=== PATIENT | female | born 1980 | race Two or more races ===

== ENCOUNTER 2020-02-09 18:17 | Observation (INO) | payer MEDICAID, SELFPAY ==
[~2020-02-09] VITALS: Ht 152.4 cm; Wt 78.0 kg
[2020-02-09 18:27] VITALS: BP 111/65
--- NOTE | 2020-02-09 18:31 | NUR ---
PT TAKEN TO BED 7.
--- NOTE | 2020-02-09 18:35 | NUR ---
A 30-WEEK OF 39/F referred from urgent care for RUQ ABDOMINAL pain since yesterday. Had ultrasound completed and told to come to ED. Pt unable to states U/S results. HOWEVER, PT REPORTS THE DR TOLD HER THE PAIN IS DUE TO HER APPENDIX. PT STATES THE PAIN IS NON-RADIATING W/O N/V/D, CONSTIPATION, FEVER, CHILLS.AAOX4 WITH EVEN AND STEADY GAIT; LUNGS CLEAR BL; HR EVEN AND REGULAR; PT DENIES ANY FEVER, CP, SOB, OR COUGH AT THIS TIME; PATIENT STATES PAIN OF 8/10 AT THIS TIME; TENDERNESS ON PALPATION ON RUQ ABDOMINAL AREA WITH GUARDING W/O REBOUND TENDERNESS NOTICED. VSS; PATIENT POSITIONED FOR COMFORT; HOB ELEVATED; BEDRAILS UP X1; BED DOWN. ER MADE AWARE OF PT STATUS. A0. IMELDA 02/11/2020. LMP 06/05/2019. NO CONSTRACTIONS, NO VAGINAL BLEEDING, -WATER BROKEN, + MOVEMENT. Addendum: 02/09/20 at 1914 by MED Gabriel's sign is negative.
--- NOTE | 2020-02-09 18:49 | NUR ---
Ultrasound at bedside.
--- NOTE | 2020-02-09 19:13 | NUR ---
Cristina crane in [facility] - 02/09/20 at 1914 by MARILYN carla's sign is negative.
--- NOTE | 2020-02-09 19:13 | NUR ---
REPORT RECEIVED FROM ALONDRA HERMAN FOR CONTINUITY OF CARE.
--- NOTE | 2020-02-09 19:13 | NUR ---
Pt report given to ALONDRA Conway. Transfer of care at this time.
[2020-02-09 19:14] LABS: BASOPHILS % (AUTO) 0.2 % (0.0-2.0); EOSINOPHILS # (AUTO) 0.1 K/uL (0-0.4); EOSINOPHILS % (AUTO) 0.9 % (0.0-4.0); HEMOGLOBIN 11.3 g/dL (12.0-16.0); LYMPHOCYTES # (AUTO) 1.7 K/uL (2.5-16.5); LYMPHOCYTES % (AUTO) 18.4 % (20.5-51.1); MEAN CORPUSCULAR HEMOGLOBIN 28 pg (27-31); MEAN CORPUSCULAR HGB CONC 33 g/dL (33-37); MEAN CORPUSCULAR VOLUME 83.9 fL (80-94); MONOCYTES # (AUTO) 0.8 K/uL (0.8-1.0); MONOCYTES % (AUTO) 8.5 % (1.7-9.3); NEUTROPHILS # (AUTO) 6.7 K/uL (1.8-7.7); PLATELET COUNT (AUTO) 196 K/uL (140-450); RED BLOOD CELL COUNT(AUTO) 4.05 MIL/uL (4.20-5.40); RED CELL DISTRIBUTION WIDTH 14.5 % (11.6-13.7); WHITE BLOOD COUNT (AUTO) 9.3 K/uL (4.8-10.8)
[2020-02-09 19:26] LABS: APPEARANCE,URINE CLEAR (CLEAR); BILIRUBIN,URINE NEGATIVE (NEGATIVE); BLOOD, URINE NEGATIVE (NEGATIVE); COLOR,URINE YELLOW (YELLOW); LEUKOCYTE ESTERASE ,URINE NEGATIVE (NEGATIVE); NITRITE, URINE NEGATIVE (NEGATIVE); UGLUCOSE NEGATIVE (NEGATIVE)
--- NOTE | 2020-02-09 19:30 | NUR ---
PT RESTING IN BED , LOCKED AND IN LOWEST POSITION ,HOB ELEVATED, SIDE RAIL X2 FOR PT SAFETY. VSS , NO ACUTE DISTRESS NOTED AT THIS TIME.
[2020-02-09 19:35] LABS: ALBUMIN 2.8 g/dL (3.4-5.0); ANION GAP 17.8 (8-16); CARBON DIOXIDE 20.1 mmol/L (21-32); CREATININE 0.5 mg/dL (0.6-1.3); POTASSIUM 3.9 mmol/L (3.5-5.1); TOTAL BILIRUBIN 0.3 mg/dL (0.0-1.0)
--- NOTE | 2020-02-09 20:10 | NUR ---
PT DISCHARGED FROM ED WITH RX OF TYLENOL AND AFTERCARE INSTRUCTIONS. PT VERBALIZED DISCHARGE INSTRUCTIONS. PT TAKEN TO OB VIA W/C FOR OB EVAULATION.
[2020-02-09] MEDS ORDERED: LACTATED RINGERS 1,000 ML IV SCH (20:40)
[2020-02-09 21:11] VITALS: BP 108/70
[2020-02-10 06:25] LABS: BASOPHILS % (AUTO) 0.1 % (0.0-2.0); EOSINOPHILS # (AUTO) 0.1 K/uL (0-0.4); EOSINOPHILS % (AUTO) 1.1 % (0.0-4.0); HEMATOCRIT 31.1 % (36-48); HEMOGLOBIN 10.6 g/dL (12.0-16.0); LYMPHOCYTES # (AUTO) 1.7 K/uL (2.5-16.5); MEAN CORPUSCULAR HEMOGLOBIN 29 pg (27-31); MEAN CORPUSCULAR HGB CONC 34 g/dL (33-37); MEAN CORPUSCULAR VOLUME 83.4 fL (80-94); MONOCYTES # (AUTO) 0.7 K/uL (0.8-1.0); MONOCYTES % (AUTO) 7.1 % (1.7-9.3); NEUTROPHILS # (AUTO) 7.1 K/uL (1.8-7.7); NEUTROPHILS % (AUTO) 73.7 % (42.2-75.2); PLATELET COUNT (AUTO) 164 K/uL (140-450); RED BLOOD CELL COUNT(AUTO) 3.73 MIL/uL (4.20-5.40); RED CELL DISTRIBUTION WIDTH 14.9 % (11.6-13.7); WHITE BLOOD COUNT (AUTO) 9.7 K/uL (4.8-10.8)
--- NOTE | 2020-02-10 07:16 | NUR ---
PATIENT HAS BEEN SCREENED AND CATEGORIZED LOW NUTRITION RISK. PATIENT WILL BE SEEN WITHIN 7 DAYS OF ADMISSION. 02/16/[address]
== END 2020-02-10 14:00 | disposition home or self-care (01) ==
LOC: MED 18:17 → MLD 20:10
PROVIDERS: ADMIT Obstetrics & Gynecology; ATTEND Obstetrics & Gynecology
DX: O26.893 Other specified pregnancy related conditions, third trimester (principal); Z20.828 Contact with and (suspected) exposure to other viral communicable diseases; R10.11 Right upper quadrant pain; O09.523 Supervision of elderly multigravida, third trimester; Z3A.30 30 weeks gestation of pregnancy
CPT/HCPCS: 36415; 76705; 76805; 80053; 81003; 82150; 83690; 85025; 96360; 96361; 99285; G0378; J7120; Q0092; U0003

== ENCOUNTER 2020-04-02 11:11 | Observation (INO) | payer MEDICAID, SELFPAY ==
[~2020-04-02] VITALS: Ht 149.9 cm; Wt 78.0 kg
[2020-04-02 12:01] VITALS: BP 117/59
--- NOTE | 2020-04-02 15:03 | NUR ---
PATIENT HAS BEEN SCREENED AND CATEGORIZED LOW NUTRITION RISK. PATIENT WILL BE SEEN WITHIN 7 DAYS OF ADMISSION. 04/08/[address]
== END 2020-04-02 14:30 | disposition home or self-care (01) ==
LOC: MLD 11:11
PROVIDERS: ADMIT Obstetrics & Gynecology; ATTEND Obstetrics & Gynecology
DX: O62.9 Abnormality of forces of labor, unspecified (principal); Z20.828 Contact with and (suspected) exposure to other viral communicable diseases; O34.219 Maternal care for unspecified type scar from previous cesarean delivery; O09.523 Supervision of elderly multigravida, third trimester; Z3A.38 38 weeks gestation of pregnancy
CPT/HCPCS: 59025; 76805; 81000; 87426; G0378; Q0092

== ENCOUNTER 2020-04-05 08:08 | Inpatient (IN) | payer MEDICAID, SELFPAY ==
[~2020-04-05] VITALS: Ht 152.4 cm; Wt 77.6 kg
[2020-04-05] MEDS ORDERED: LACTATED RINGERS 1,000 ML IV SCH (08:20)
[2020-04-05 09:08] LABS: BASOPHILS % (AUTO) 0.2 % (0.0-2.0); EOSINOPHILS # (AUTO) 0.1 K/uL (0-0.4); EOSINOPHILS % (AUTO) 0.7 % (0.0-4.0); HEMATOCRIT 33.8 % (36-48); HEMOGLOBIN 11.1 g/dL (12.0-16.0); LYMPHOCYTES # (AUTO) 1.6 K/uL (2.5-16.5); LYMPHOCYTES % (AUTO) 20.3 % (20.5-51.1); MEAN CORPUSCULAR HEMOGLOBIN 25 pg (27-31); MEAN CORPUSCULAR HGB CONC 33 g/dL (33-37); MEAN CORPUSCULAR VOLUME 77.3 fL (80-94); MONOCYTES # (AUTO) 0.5 K/uL (0.8-1.0); NEUTROPHILS # (AUTO) 5.6 K/uL (1.8-7.7); NEUTROPHILS % (AUTO) 71.8 % (42.2-75.2); PLATELET COUNT (AUTO) 174 K/uL (140-450); RED BLOOD CELL COUNT(AUTO) 4.37 MIL/uL (4.20-5.40); RED CELL DISTRIBUTION WIDTH 16.2 % (11.6-13.7); WHITE BLOOD COUNT (AUTO) 7.7 K/uL (4.8-10.8)
[2020-04-05 09:15] LABS: APPEARANCE,URINE CLEAR (CLEAR); BILIRUBIN,URINE NEGATIVE (NEGATIVE); BLOOD, URINE NEGATIVE (NEGATIVE); COLOR,URINE YELLOW (YELLOW); LEUKOCYTE ESTERASE ,URINE TRACE (NEGATIVE); NITRITE, URINE NEGATIVE (NEGATIVE); UGLUCOSE NEGATIVE (NEGATIVE)
[2020-04-05 09:16] VITALS: BP 98/61
[2020-04-05 09:23] LABS: ALBUMIN 2.7 g/dL (3.4-5.0); ANION GAP 15.2 (8-16); CARBON DIOXIDE 19.7 mmol/L (21-32); CREATININE 0.7 mg/dL (0.6-1.3); POTASSIUM 3.9 mmol/L (3.5-5.1); TOTAL BILIRUBIN 0.4 mg/dL (0.0-1.0)
[2020-04-05 09:40] LABS: RBC,URINE 0-5 /HPF (0-5); WBC,URINE 0-5 /HPF (0-5)
[2020-04-05] MEDS ORDERED: MORPHINE PRES FREE 10 MG/10 ML AMP IV ONE ×2 (12:17→12:31)
[2020-04-05] MEDS ORDERED: TETRACAINE 1% 2 ML AMP INJ ONE (12:27)
[2020-04-05] MEDS ORDERED: METOCLOPRAMIDE 10 MG/2 ML INJ VIAL ONE (12:31)
[2020-04-05] MEDS ORDERED: ePHEDrine 50 MG/ML VIAL ONE (12:31)
[2020-04-05] MEDS ORDERED: NEOSTIGMINE 1:1000 10 MG/10 ML VIAL ONE (12:31)
[2020-04-05] MEDS ORDERED: OXYTOCIN 10 UNITS/ML VIAL ONE (12:31)
[2020-04-05] MEDS ORDERED: ceFAZolin 1,000 MG VIAL ONE ×2 (12:31→20:50)
[2020-04-05] MEDS ORDERED: ceFAZolin 1,000 MG VIAL IVP ONE (12:45)
[2020-04-05] MEDS ORDERED: KETOROLAC 30 MG/ML VIAL IVP PRN (15:10)
[2020-04-05] MEDS ORDERED: ONDANSETRON 4 MG/2 ML VIAL IVP PRN (15:10)
[2020-04-05] MEDS ORDERED: NALOXONE 0.4 MG/ML VIAL IVP PRN ×2 (15:10)
[2020-04-05] MEDS ORDERED: diphenhydrAMINE 50 MG/ML VIAL IVP PRN (15:15)
[2020-04-05] MEDS ORDERED: OXYTOCIN 20 UNITS/LR PREMIX 1,000 ML IV ONE ×2 (15:36→20:19)
[2020-04-05] MEDS ORDERED: HYDROmorphone 1 MG/ML AMP IVP PRN (19:10)
[2020-04-05] MEDS ORDERED: MEASLES, MUMPS, AND RUBELLA 1 VIAL SQVAC PRN (19:10)
[2020-04-05] MEDS: OXYTOCIN 20 UNITS in LACTATED RINGERS 1,000 ML IV SCH (21:04)
[2020-04-06] MEDS ORDERED: ceFAZolin 1,000 MG VIAL ONE (04:54)
[2020-04-06] MEDS ORDERED: OXYTOCIN 20 UNITS/LR PREMIX 1,000 ML IV ONE (05:36)
[2020-04-06] MEDS: OXYTOCIN 20 UNITS in LACTATED RINGERS 1,000 ML IV SCH (07:01)
[2020-04-06 08:29] LABS: BASOPHILS % (AUTO) 0.2 % (0.0-2.0); EOSINOPHILS % (AUTO) 0.2 % (0.0-4.0); HEMATOCRIT 25.5 % (36-48); HEMOGLOBIN 8.4 g/dL (12.0-16.0); LYMPHOCYTES # (AUTO) 1.1 K/uL (2.5-16.5); LYMPHOCYTES % (AUTO) 11.2 % (20.5-51.1); MEAN CORPUSCULAR HEMOGLOBIN 26 pg (27-31); MEAN CORPUSCULAR HGB CONC 33 g/dL (33-37); MEAN CORPUSCULAR VOLUME 77.6 fL (80-94); MONOCYTES # (AUTO) 0.6 K/uL (0.8-1.0); MONOCYTES % (AUTO) 5.8 % (1.7-9.3); NEUTROPHILS # (AUTO) 8.3 K/uL (1.8-7.7); NEUTROPHILS % (AUTO) 82.6 % (42.2-75.2); PLATELET COUNT (AUTO) 166 K/uL (140-450); RED BLOOD CELL COUNT(AUTO) 3.29 MIL/uL (4.20-5.40); RED CELL DISTRIBUTION WIDTH 16.2 % (11.6-13.7)
[2020-04-06] MEDS ORDERED: FUROSEMIDE 20 MG/2 ML VIAL IVP SCH ×2 (14:45→20:32)
[2020-04-07] MEDS: KETOROLAC 30 MG/ML VIAL IVP PRN ×2 (01:26→08:41)
--- NOTE | 2020-04-07 06:25 | NUR ---
PATIENT HAS BEEN SCREENED AND CATEGORIZED LOW NUTRITION RISK. PATIENT WILL BE SEEN WITHIN 7 DAYS OF ADMISSION. 04/12/20 ASHLEY CLEVELAND MS, RDN
[2020-04-07 08:08] LABS: HEMATOCRIT 32.7 % (36-48); HEMOGLOBIN 10.8 g/dL (12.0-16.0)
[2020-04-07] MEDS: SIMETHICONE 80 MG TAB.CHEW PO SCH ×2 (08:41→12:41)
[2020-04-07] MEDS: bisacodyL 5 MG TABEC PO SCH (08:42)
[2020-04-07] MEDS: DOCUSATE SODIUM 100 MG GELCAP PO SCH (08:42)
[2020-04-07] MEDS ORDERED: SODIUM PHOSPHATE 118 ML ENEM RC PRN (09:00)
[2020-04-07] MEDS: IBUPROFEN 600 MG TAB PO PRN ×2 (11:56→20:10)
[2020-04-07] MEDS ORDERED: FLU VACCINE QS2020-21 0.5 ML SYR IMVAC PRN (23:40)
[2020-04-08] MEDS: ACETAMINOPHEN 325 MG TAB PO PRN ×2 (00:33→21:59)
[2020-04-08] MEDS: IBUPROFEN 600 MG TAB PO PRN ×3 (04:27→18:11)
[2020-04-08] MEDS: DOCUSATE SODIUM 100 MG GELCAP PO SCH (08:41)
[2020-04-08] MEDS: bisacodyL 5 MG TABEC PO SCH (08:41)
[2020-04-08] MEDS: SIMETHICONE 80 MG TAB.CHEW PO SCH ×3 (08:41→18:11)
[2020-04-09] MEDS: IBUPROFEN 600 MG TAB PO PRN ×2 (02:22→09:46)
[2020-04-09] MEDS: bisacodyL 5 MG TABEC PO SCH (09:45)
[2020-04-09] MEDS: DOCUSATE SODIUM 100 MG GELCAP PO SCH (09:46)
[2020-04-09] MEDS: SIMETHICONE 80 MG TAB.CHEW PO SCH (09:46)
== END 2020-04-09 15:15 | disposition home or self-care (01) | DRG 540 ==
LOC: MLD 08:08 → MFCC 17:00
PROVIDERS: ADMIT Obstetrics & Gynecology; ATTEND Obstetrics & Gynecology
PROC: 0HB7XZZ Excision of Abdomen Skin, External Approach (ICD-10-PCS; 2020-04-05)
PROC: 10D00Z1 Extraction of Products of Conception, Low, Open Approach (ICD-10-PCS; principal; 2020-04-05 12:30)
PROC: 30233N1 Transfusion of Nonautologous Red Blood Cells into Peripheral Vein, Percutaneous Approach (ICD-10-PCS; 2020-04-06)
DX: O34.211 Maternal care for low transverse scar from previous cesarean delivery (principal); Z37.0 Single live birth; Z3A.38 38 weeks gestation of pregnancy
CPT/HCPCS: 36415; 80053; 81001; 85018; 85025; 86592; 86886; 86900; 86901; 86920; 87081; 87086; 90715; J0690; J1200; J1885; J1940; J2270; J2405; J2590; J2710; J2765; J3490; J7030; J7060; J7120; P9016